=== PATIENT | male | born 1955 | race Caucasian/White ===

== ENCOUNTER 2017-10-18 05:34 | Day surgery (SDC) | payer OTHER ==
[~2017-10-18] VITALS: Ht 167.6 cm; Wt 74.5 kg
[~2017-10-18 05:34] MED LIST: ASCO500 PO; ASPI-1182 PO; CALCITONIN NS; CARB15DR61 AU; MELA3TAB66 PO; RINGERS SOLUTION,LACTATED 1,000 ML IV ONE; TRAZ-144 PO; VITAD400 PO; WHEA236P PO; [UNRECOGNIZED DRUG - CODE] PO; [UNRECOGNIZED DRUG - CODE] PO
[2017-10-18] MEDS ORDERED: OXYMETAZOLINE HCL 0.05% 15 ML NASAL SPRAY NASAL ONE (05:35)
[2017-10-18] MEDS ORDERED: GLYCOPYRROLATE 0.2 MG/ML VIAL IM ONE (05:35)
[2017-10-18] MEDS ORDERED: PROPOFOL 1% 20 ML VIAL IVP ONE (05:35)
[2017-10-18] MEDS ORDERED: DEXAMETHASONE SOD PHOS 4 MG/ML VIAL IVP ONE (05:35)
[2017-10-18] MEDS ORDERED: METOCLOPRAMIDE HCL 5 MG/ML 2 ML VIAL IVP ONE (05:35)
[2017-10-18] MEDS ORDERED: LIDOCAINE HCL/PF 2% 5 ML VIAL INJ ONE (05:35)
[2017-10-18] MEDS ORDERED: RINGERS SOLUTION,LACTATED 1,000 ML IV ONE (06:00)
[2017-10-18 06:11] LABS: BASOPHILS % (AUTO) 0.4 % (0.0-2.0); EOSINOPHILS % (AUTO) 2.2 % (1.0-6.0); HEMATOCRIT 37.6 % (41-53); HEMOGLOBIN 12.8 g/dL (13.5-17.5); LYMPHOCYTES # (AUTO) 1.4 K/uL (1.0-4.8); LYMPHOCYTES % (AUTO) 23.6 % (22.0-44.0); MEAN CORPUSCULAR HEMOGLOBIN 27.6 pg (26.0-34.0); MEAN CORPUSCULAR HGB CONC 34.1 G/dL (31.0-37.0); MEAN CORPUSCULAR VOLUME 81 fL (80-100); MONOCYTES # (AUTO) 0.5 K/uL (0.1-1.0); NEUTROPHILS % (AUTO) 65.8 % (40.0-70.0); PLATELET COUNT (AUTO) 244 K/uL (150-450); RED BLOOD CELL COUNT(AUTO) 4.66 MIL/uL (4.50-5.90); RED CELL DISTRIBUTION WIDTH 13.8 % (11.5-14.5)
[2017-10-18 07:15] LABS: PROTHROMBIN TIME 10.9 SEC (9.4-11.6)
[2017-10-18 07:17] LABS: ANION GAP 2 mmol/L (8-16); CALCIUM, TOTAL 8.9 mg/dL (8.8-10.5); CARBON DIOXIDE 32 mmol/L (22-29); CHLORIDE 105 mmol/L (98-107); CREATININE 0.67 mg/dL (0.60-1.30); GLOMERULAR FILTR. RATE CALC > 60 mL/min (>60); GLUCOSE,RANDOM 88 mg/dL (70-110); POTASSIUM 4.4 mmol/L (3.5-5.1); SODIUM SERUM 139 mmol/L (136-145); UREA NITROGEN, BLOOD 16 mg/dL (7-18)
[2017-10-18 07:21] LABS: ALANINE AMINOTRANSFERASE 23 U/L (12-78); ALBUMIN 3.2 g/dL (3.4-5.0); ALKALINE PHOSPHATASE 87 U/L (46-116); ASPARTATE AMINOTRANSFERASE 18 U/L (15-37); BILIRUBIN,TOTAL 0.2 mg/dL (0.1-1.0); TOTAL PROTEIN, SERUM 6.6 g/dL (6.4-8.2)
[2017-10-18] MEDS ORDERED: LIDOCAINE HCL 2% 30 ML JELLY ONE (07:27)
[2017-10-18] MEDS ORDERED: AMPICILLIN SODIUM 1 GM/VIAL ONE (07:58)
[2017-10-18] MEDS ORDERED: LIDOCAINE HCL/PF 1% 30 ML VIAL ONE (08:37)
[2017-10-18] MEDS ORDERED: GELATIN SPONGE,ABSORBABLE 12-7 MM TP ONE (08:47)
[2017-10-18] MEDS ORDERED: FentaNYL CITRATE-PF 100 MCG/2 ML VIAL ONE (09:06)
[2017-10-18] MEDS: FentaNYL CITRATE-PF 100 MCG/2 ML VIAL IVP PRN ×2 (09:10→09:20)
[2017-10-18] MEDS ORDERED: FentaNYL CITRATE-PF 100 MCG/2 ML VIAL IVP ONE (12:00)
[2017-10-18] MEDS ORDERED: MIDAZOLAM HCL 2 MG/2 ML VIAL IVP ONE (12:00)
== END 2017-10-18 10:40 | disposition home or self-care (01) ==
LOC: SURGERY 05:34
PROVIDERS: ATTEND Dentist General Practice
DX: K05.30 Chronic periodontitis, unspecified (principal); K05.10 Chronic gingivitis, plaque induced; G80.8 Other cerebral palsy; F41.9 Anxiety disorder, unspecified; K21.9 Gastro-esophageal reflux disease without esophagitis; M81.0 Age-related osteoporosis without current pathological fracture; F73 Profound intellectual disabilities; Z79.82 Long term (current) use of aspirin; Z79.01 Long term (current) use of anticoagulants; Z88.4 Allergy status to anesthetic agent; Z79.891 Long term (current) use of opiate analgesic; Z79.899 Other long term (current) drug therapy
CPT/HCPCS: 36415; 41899; 71045; 80053; 85025; 85610; 85730; 93005; J0290; J1100; J2250; J2704; J2765; J3010; J3490 ×3; J7120